=== PATIENT | male | born 1945 | race Caucasian/White ===

== ENCOUNTER 2021-09-08 03:59 | Day surgery (SDC) | payer OTHER, BC ==
[2021-09-06 15:23] VITALS: BMI 21.2
[2021-09-08 09:17] VITALS: TEMP 98.2
[2021-09-08 10:27] VITALS: BP 138/67; PULSE 45; RESP 18
== END 2021-09-08 10:15 | disposition home or self-care (01) ==
LOC: JASU-ENDO 03:59
PROVIDERS: ATTEND Internal Medicine Gastroenterology
PROC: 0DBN8ZX Excision of Sigmoid Colon, Via Natural or Artificial Opening Endoscopic, Diagnostic (ICD-10-PCS; principal; 2021-09-08 08:45)
DX: Z12.11 Encounter for screening for malignant neoplasm of colon (principal); Z86.010 Personal history of colon polyps; Z80.0 Family history of malignant neoplasm of digestive organs; K57.30 Diverticulosis of large intestine without perforation or abscess without bleeding; D12.7 Benign neoplasm of rectosigmoid junction
CPT/HCPCS: 88305-TC